=== PATIENT | male | born 1950 | race Caucasian/White ===

== ENCOUNTER 2019-05-02 22:14 | Emergency (ER) | payer MEDICARE ==
--- NOTE | 2019-05-02 22:45 | ED ---
Recheck HPI - General Chief Complaint: Recheck/Abnormal Lab/Rx Stated Complaint: high B/P Time Seen by Provider: 05/02/19 22:23 Source: patient Mode of arrival: ambulatory - History of Present Illness Initial Comments: Calin is a pleasant 68-year-old gentleman presents the ER today for evaluation of asymptomatic hypertension. Patient reports he saw his primary care physician a couple weeks ago and was told that his blood pressures elevated, since that time he's been checking his blood pressure 2 times a day, he states that it's been running somewhat high but this evening he diastolic numbers greater than 100 which prompted him to the ER for evaluation. Patient denies any complaints, he denies any headache, vision changes, chest pain, shortness breath and palpitations, lightheadedness. Patient states that he did take his evening medications after checking his blood pressure and then came to the ER. - Related Data Home Medications Medication Instructions Recorded Confirmed Aspirin [Adult Low Dose Aspirin EC] 81 mg PO DAILY 06/25/17 05/02/19 Atorvastatin [Lipitor] 80 mg PO DAILY 06/25/17 05/02/19 Metoprolol Tartrate 25 mg PO BID 06/25/17 05/02/19 amLODIPine BESYLATE/BENAZEPRIL 1 cap PO BID 05/02/19 05/02/19 [Lotrel 5-20 MG] Allergies Allergy/AdvReac Type Severity Reaction Status Date / Time No Known Allergies Allergy Verified 05/02/19 22:32 Review of Systems ROS Statement: Those systems with pertinent positive or pertinent negative responses have been documented in the HPI. ROS Other: All systems not noted in ROS Statement are negative. Past Medical History Past Medical History: Hyperlipidemia, Hypertension History of Any Multi-Drug Resistant Organisms: None Reported Past Surgical History: Coronary Bypass/CABG Past Psychological History: Anxiety Smoking Status: Former smoker Past Alcohol Use History: Daily Past Drug Use History: None Reported General Exam - General Exam Comments Initial Comments: Physical Exam GENERAL: Patient is well-developed and well-nourished. Patient is nontoxic and well- hydrated and is in no distress. HENT: Normocephalic, Atraumatic. EYES: PERRL, EOMI PULMONARY: Unlabored respirations. No audible rales rhonchi or wheezing was noted. CARDIOVASCULAR: There is a regular rate and rhythm without any murmurs gallops or rubs. ABDOMEN: Soft and nontender with normal bowel sounds. SKIN: Skin is clear with no lesions or rashes and otherwise unremarkable. : Deferred NEUROLOGIC: Patient is alert and oriented x3. Moving all extremities spontaneously MUSCULOSKELETAL: Normal extremities with adequate strength and full range of motion. No lower extremity swelling or edema. No calf tenderness. PSYCHIATRIC: Normal psychiatric evaluation. Course Vital Signs 05/02/19 05/02/19 22:16 22:55 Temperature 98.0 F 98.1 F Pulse Rate 82 80 Respiratory 20 18 Rate Blood Pressure 187/95 167/100 O2 Sat by Pulse 99 98 Oximetry Medical Decision Making - Medical Decision Making Patient was seen and evaluated, history is obtained from the patient and at bedside Patient with a symptomatically hypertension, checked his blood pressure the time that he took his medication, was greater than hour ago, upon reevaluation blood pressure is 167/100. I discussed with the patient that though this is high blood pressure cannot emergent does not require further treatment. Patient is to see his primary care physician again in 2 weeks. Advised the patient that if he's having hypertension despite being complaint with his medication he can take half a pill of his Lopressor and all questions pertaining care were answered return parameters were discussed patient was discharged home in stable condition. Disposition Clinical Impression: Hypertension Disposition: HOME SELF-CARE Condition: Stable Instructions (If sedation given, give patient instructions): Chronic Hypertension (ED) Additional Instructions: If you're blood pressure remains elevated 90 minutes after taking her blood pressure medications you can take a half a pill of metoprolol. Follow-up Dr. Ariza as planned. Return to the ER if you have any chest pain palpitations shortness of breath headache vision changes or any new or concerning symptoms. Is patient prescribed a controlled substance at d/c from ED?: No Referrals: Marcos Ariza MD [Primary Care Provider] - 1-2 days
[2019-05-02 22:56] VITALS: BP 167/100; PULSE 80; RESP 18; TEMP 98.1
== END 2019-05-02 22:56 | disposition home or self-care (01) ==
LOC: EC 22:14
DX: I10 Essential (primary) hypertension (principal); E78.5 Hyperlipidemia, unspecified; Z87.891 Personal history of nicotine dependence; Z79.82 Long term (current) use of aspirin; Z79.899 Other long term (current) drug therapy; Z95.1 Presence of aortocoronary bypass graft
CPT/HCPCS: 99283

== ENCOUNTER → 2021-10-27 | Outpatient (CLI) | payer MEDICARE ==
--- NOTE | 2021-10-27 11:07 | US ---
EXAMINATION TYPE: US venous doppler duplex LE DATE OF EXAM: 10/27/2021 9:30 AM COMPARISON: NONE CLINICAL HISTORY: R13.10, E78.00, I25.10, M62.81, Z87.891, Z13.6. Pain bilateral legs SIDE PERFORMED: Bilateral TECHNIQUE: The lower extremity deep venous system is examined utilizing real time linear array sonog jef with graded compression, doppler sonography and color-flow sonography. VESSELS IMAGED: Common Femoral Vein Deep Femoral Vein Greater Saphenous Vein * Femoral Vein Popliteal Vein Small Saphenous Vein * Proximal Calf Veins (* superficial vessels) Right Leg: Negative for DVT Left Leg: Negative for DVT Grayscale, color doppler, spectral doppler imaging performed of the deep veins of the bilateral lower extremities. There is normal flow, compressibility, vascular waveforms. IMPRESSION: No ultrasound evidence for acute DVT in either lower extremity.
--- NOTE | 2021-10-27 11:49 | US ---
EXAMINATION TYPE: US duplex aorta DATE OF EXAM: 10/27/2021 COMPARISON: NONE CLINICAL HISTORY: R13.10, E78.00, I25.10, M62.81, Z87.891, Z13.6. AAA screening EXAM MEASUREMENTS: Abdominal Aorta: Proximal: 1.8 X 1.9 X 1.9 CM Mid: 1.8 X 2.1 X 2.3 CM Distal: 1.6 X1.6 X 1.8 CM Bifurcation: Right = 0.9 x 1.0 cm Left= 1.2 x 1.1 cm No AAA visualized at time of scan. Aorta is successfully visualized through the bifurcation. IMPRESSION: No ultrasound evidence for greater than 3.0 cm AAA.
--- NOTE | 2021-10-27 14:01 | FL ---
EXAMINATION TYPE: FL barium swallow DATE OF EXAM: 10/27/2021 CLINICAL HISTORY: Throat tightness and soreness. Some choking sensation. TECHNIQUE: A double contrast esophagram is performed utilizing air and barium. A total of 40 second s of fluoroscopic time was utilized during procedure and 39 images obtained COMPARISON: None FINDINGS: The esophagus shows satisfactory motility and emptying into the stomach. No diverticulum is seen. No intraluminal mass identified. Small sliding-type hiatal hernia. No stricture noted. No sig nificant gastroesophageal reflux was seen during real time performance of this study. Overlying doyle al wires from CABG procedure are noted. IMPRESSION: Small sliding-type hiatal hernia otherwise unremarkable study.
== END | disposition home or self-care (01) ==
LOC: RADUSWWP 08:47
PROVIDERS: ATTEND Family Medicine
DX: Z13.6 Encounter for screening for cardiovascular disorders (principal); E78.00 Pure hypercholesterolemia, unspecified; I25.10 Atherosclerotic heart disease of native coronary artery without angina pectoris; M62.81 Muscle weakness (generalized); K44.9 Diaphragmatic hernia without obstruction or gangrene; I73.9 Peripheral vascular disease, unspecified; Z87.891 Personal history of nicotine dependence; Z95.1 Presence of aortocoronary bypass graft
CPT/HCPCS: 74220; 93922; 93970; 93979

== ENCOUNTER → 2022-05-25 | Outpatient (CLI) | payer MEDICARE | END | disposition home or self-care (01) | LOC: RADUSWWP 08:30 | PROVIDERS: ATTEND Family Medicine | DX: Z53.9 Procedure and treatment not carried out, unspecified reason (principal) ==

== ENCOUNTER 2023-05-18 23:50 | Emergency (ER) | payer MEDICARE ==
[2023-05-19 00:16] VITALS: RESP 18
[2023-05-19 00:41] LABS: Basophils % (A) 0 %; Eosinophils # (A) 0.1 k/uL (0-0.7); Eosinophils % (A) 2 %; HCT 39.7 % (39.0-53.0); HGB 13.2 gm/dL (13.0-17.5); Lymphocytes # (A) 1.7 k/uL (1.0-4.8); Lymphocytes % (A) 26 %; MCH 29.9 pg (25.0-35.0); MCHC 33.1 g/dL (31.0-37.0); MCV 90.2 fL (80.0-100.0); Mean Platelet Volume 8.8; Monocytes # (A) 0.5 k/uL (0-1.0); Monocytes % (A) 8 %; Neutrophils % (A) 61 %; Platelet Count 136 k/uL (150-450); RDW 13.3 % (11.5-15.5); WBC 6.6 k/uL (3.8-10.6)
[2023-05-19 00:45] LABS: ALT 43 U/L (4-49); AST 38 U/L (17-59); African American GFR (CKD) 49 (>60 ml/min/1.73 sqM); Alkaline Phosphatase 52 U/L (38-126); Anion Gap 9 mmol/L; Blood Urea Nitrogen 24 mg/dL (9-20); Calcium 9.4 mg/dL (8.4-10.2); Carbon Dioxide 24 mmol/L (22-30); Chloride 108 mmol/L (98-107); Glucose 87 mg/dL (74-99); Magnesium 2.2 mg/dL (1.6-2.3); Non-African American GFR(CKD) 43 (>60 ml/min/1.73 sqM); Potassium 4.6 mmol/L (3.5-5.1); Sodium 141 mmol/L (137-145); Total Bilirubin 0.3 mg/dL (0.2-1.3); Total Protein 6.5 g/dL (6.3-8.2)
[2023-05-19 00:49] LABS: Partial Thromboplastin Time 25.1 sec (22.0-30.0); Prothrombin Time 11.1 sec (10.0-12.5)
--- NOTE | 2023-05-19 02:13 | ED ---
Chest Pain HPI - General Chief Complaint: Chest Pain Stated Complaint: Chest Pain Time Seen by Provider: 05/18/23 23:55 Source: patient Mode of arrival: ambulatory Limitations: no limitations - History of Present Illness Initial Comments: 72-year-old male with past medical history of coronary artery disease status post coronary bypass, hypertension who presents emergency department reporting chest pain. States the pain began around 9 PM while he was getting ready for bed. He describes it as a pressure sensation over the right side of his chest. Denies any provocative factors. Denies associated shortness of breath, nausea. No fevers, chills or cough. Pain is mostly resolved at this time. Denies taking any medications for his symptoms. He has no access to nitro. States that he is currently undergoing testing through his cardiology office. He just had a treadmill stress test done. He is supposed to be going for a nuclear stress test on the . He denies any additional symptoms to include abdominal pain, numbness or tingling in his extremities. No other alleviating, precipitating or modifying factors - Related Data Home Medications Medication Instructions Recorded Confirmed Aspirin [Adult Low Dose Aspirin EC] 81 mg PO DAILY 06/25/17 05/02/19 Atorvastatin [Lipitor] 80 mg PO DAILY 06/25/17 05/02/19 Metoprolol Tartrate 25 mg PO BID 06/25/17 05/02/19 amLODIPine BESYLATE/BENAZEPRIL 1 cap PO BID 05/02/19 05/02/19 [Lotrel 5-20 MG] Allergies Allergy/AdvReac Type Severity Reaction Status Date / Time No Known Allergies Allergy Verified 05/18/23 23:55 Review of Systems ROS Statement: Those systems with pertinent positive or pertinent negative responses have been documented in the HPI. ROS Other: All systems not noted in ROS Statement are negative. Past Medical History Past Medical History: Hyperlipidemia, Hypertension History of Any Multi-Drug Resistant Organisms: None Reported Past Surgical History: Coronary Bypass/CABG Past Psychological History: Anxiety Smoking Status: Never smoker Past Alcohol Use History: Daily Past Drug Use History: None Reported General Exam Limitations: no limitations General appearance: alert, in no apparent distress Head exam: Present: atraumatic, normocephalic, normal inspection Eye exam: Present: normal appearance, PERRL, EOMI. Absent: scleral icterus, conjunctival injection, periorbital swelling ENT exam: Present: normal exam, mucous membranes moist Neck exam: Present: normal inspection. Absent: tenderness, meningismus, lymphadenopathy Respiratory exam: Present: normal lung sounds bilaterally. Absent: respiratory distress, wheezes, rales, rhonchi, stridor Cardiovascular Exam: Present: regular rate, normal rhythm, normal heart sounds. Absent: systolic murmur, diastolic murmur, rubs, gallop, clicks GI/Abdominal exam: Present: soft, normal bowel sounds. Absent: distended, tenderness, guarding, rebound, rigid Extremities exam: Present: normal inspection, full ROM, normal capillary refill. Absent: tenderness, pedal edema, joint swelling, calf tenderness Back exam: Present: normal inspection Neurological exam: Present: alert, oriented X3, CN II-XII intact Psychiatric exam: Present: normal affect, normal mood Skin exam: Present: warm, dry, intact, normal color. Absent: rash Course Vital Signs 05/18/23 05/19/23 23:53 02:50 Temperature 98 F 98.1 F Pulse Rate 64 51 L Respiratory 18 18 Rate Blood Pressure 202/99 137/76 O2 Sat by Pulse 96 97 Oximetry Chest Pain MDM - MDM Was pt. sent in by a medical professional or institution (, PA, ELECTRIC CAR OPERATOR, urgent care, hospital, or [facility]...) When possible be specific @ -No Did you speak to anyone other than the patient for history (EMS, parent, family, police, friend...)? What history was obtained from this source @ -No Did you review nursing and triage notes (agree or disagree)? Why? @ -I reviewed and agree with nursing and triage notes Were old charts reviewed (outside hosp., previous admission, EMS record, old EKG, old radiological studies, urgent care reports/EKG's, [facility] records)? Report findings @ -I reviewed patient's old EKG Differential Diagnosis (chest pain, altered mental status, abdominal pain women, abdominal pain men, vaginal bleeding, weakness, fever, dyspnea, syncope, headache, dizziness, GI bleed, back pain, seizure, CVA, palpatations, mental health, musculoskeletal)? @ -Differential Chest Pain: Stable Angina, Unstable Angina, STEMI, NSTEMI Aortic Dissection, Pneumothorax, Musculoskeletal, Esophageal Spasm GERD, Cholecystitis, Pancreatitis, Zoster, this is not meant to be an all-inclusive list. EKG interpreted by me (3pts min.). @ -Yes and demonstrates sinus bradycardia with a rate of 56. IA interval 264. QRS 124. QTC of 438. No acute ST segment elevations or depressions X-rays interpreted by me (1pt min.). @ -Yes and demonstrates no acute process CT interpreted by me (1pt min.). @ -None done U/S interpreted by me (1pt. min.). @ -None done What testing was considered but not performed or refused? (CT, X-rays, U/S, labs)? Why? @ -Serial troponins, echo, stress test, cardiology consultation -patient refused What meds were considered but not given or refused? Why? @ -None Did you discuss the management of the patient with other professionals (professionals i.e. , PA, ELECTRIC CAR OPERATOR, lab, RT, psych nurse, criminal justice social worker, cupola melter helper, teacher, contract officer, counseling case manager)? Give summary @ -No Was smoking cessation discussed for >3mins.? @ -No Was critical care preformed (if so, how long)? @ -No Were there social determinants of health that impacted care today? How? (Homelessness, low income, unemployed, alcoholism, drug addiction, transportation, low edu. Level, literacy, decrease access to med. care, senior living, rehab)? @ -No Was there de-escalation of care discussed even if they declined (Discuss DNR or withdrawal of care, Hospice)? DNR status @ -No What co-morbidities impacted this encounter? (DM, HTN, Smoking, COPD, CAD, Cancer, CVA, ARF, Chemo, Hep., AIDS, mental health diagnosis, sleep apnea, morbid obesity)? @ -Coronary artery disease Was patient admitted / discharged? Hospital course, mention meds given and route, prescriptions, significant lab abnormalities, going to OR and other pertinent info. @ -Discharged. Upon arrival 12-lead EKG was obtained. Laboratory studies are conducted. Patient is offered something for pain however he reports that majority of his pain is gone at this time. Results of laboratory studies are discussed the patient. I did recommend admission due to his significant cardiac history however patient adamantly wants to go home. He is aware of the risks of leaving including permanent disability and even . He does have capacity to make his own decisions and continues to want to leave. I did request that I perform a second troponin level for which she was agreeable to stay and additi onal 30 minutes to have this done. Second troponin continues to be negative. Patient will be discharged to follow up with his contract officer for his stress test. Return if he has any new or worsening symptoms. Patient was agreeable to plan is discharged in stable condition Undiagnosed new problem with uncertain prognosis? @ -Yes Drug Therapy requiring intensive monitoring for toxicity (Heparin, Nitro, Insulin, Cardizem)? @ -No Were any procedures done? @ -No Diagnosis/symptom? @ -Acute chest pain, history of atherosclerotic coronary artery disease Acute, or Chronic, or Acute on Chronic? @ -Acute Uncomplicated (without systemic symptoms) or Complicated (systemic symptoms)? @ -Complicated Side effects of treatment? @ -No Exacerbation, Progression, or Severe Exacerbation? @ -No Poses a threat to life or bodily function? How? (Chest pain, [place], [place], pneumonia, PE, COPD, DKA, ARF, appy, cholecystitis, CVA, Diverticulitis, Homicidal, Suicidal, threat to staff... and all critical care pts) @ -Yes, patient has chest pain with a history of coronary disease Disposition Clinical Impression: Chest pain Disposition: HOME SELF-CARE Condition: Stable Instructions (If sedation given, give patient instructions): Chest Pain (ED) Additional Instructions: I recommend you follow up with your primary care doctor for further workup. Return to the emergency room for any new or worsening symptoms Is patient prescribed a controlled substance at d/c from ED?: No Referrals: Amee Iqbal MD [Primary Care Provider] - 1-2 days Time of Disposition: 02:41
[2023-05-19 02:55] VITALS: BP 137/76; PULSE 51; TEMP 98.1
--- NOTE | 2023-05-19 06:16 | XR ---
EXAM: XR Chest, 2 Views CLINICAL HISTORY: ITS.REASON XR Reason: Chest Pain TECHNIQUE: Frontal and lateral views of the chest. COMPARISON: 2 views of the chest June 25, 2017 IMPRESSION: 1. Unchanged mild peripheral interstitial changes in the lungs. 2. Sternotomy changes. 3. Otherwise, no acute cardiopulmonary abnormality.
== END 2023-05-19 02:51 | disposition home or self-care (01) ==
LOC: EC 23:50
DX: I44.0 Atrioventricular block, first degree (principal); E78.5 Hyperlipidemia, unspecified; I10 Essential (primary) hypertension; I25.10 Atherosclerotic heart disease of native coronary artery without angina pectoris; Z95.1 Presence of aortocoronary bypass graft; Z79.82 Long term (current) use of aspirin; Z79.899 Other long term (current) drug therapy; Z86.59 Personal history of other mental and behavioral disorders
CPT/HCPCS: 36415; 71046; 80053; 83735; 84484; 85025; 85610; 85730; 93005; 99285

== ENCOUNTER 2023-05-24 07:44 | Day surgery (SDC) | payer MEDICARE ==
[2023-05-22 13:57] VITALS: BMI 25.8
[~2023-05-24 07:44] MED LIST: LACTATED RINGERS 1,000 ML IV SCH; LIDOCAINE 1% (10MG/ML) FOR IV START INTRADERMA PRN
[2023-05-24 08:26] VITALS: TEMP 96.9
[2023-05-24] MEDS ORDERED: PROPOFOL 10 MG/ML 20 ML VIAL IV ONE (08:48)
[2023-05-24] MEDS ORDERED: LIDOCAINE 1% INJ 10MG/ML (20 ML MDV) ONE (08:48)
--- NOTE | 2023-05-24 09:08 | P.PCN ---
Date of Procedure: 05/24/23 Procedure(s) Performed: BRIEF HISTORY: Patient is a 72-year-old pleasant swhite malecheduled for an elective colonoscopy as a part of screening for colon cancer. PROCEDURE PERFORMED: Colonoscopy. PREOPERATIVE DIAGNOSIS: Screening for colon cancer IV sedation per Anesthesia. PROCEDURE: After informed consent was obtained, the patient, was brought into the endoscopy unit. IV sedation was administered by Anesthesia under continuous monitoring. Digital rectal examination was normal. Initially the Olympus CF-160 flexible video colonoscope was then inserted in the rectum, gradually advanced into the cecum without any difficulty. Careful examination was performed as the scope was gradually being withdrawn. Ileocecal valve and the appendiceal orifice were visualized and appeared normal. Prep was excellent. Mucosa of the cecum, at 3 small polyps measuring between 2 mm 3 mm and 4 mm in size all of which were removed by cold biopsy. In the ascending colon there was a 3 mm polyp that was removed by cold biopsy. In the descending colon there was a 4 mm polyp removed by cold biopsy. In the sigmoid: There was a 7 mm polyp that was removed by cold snare polypectomy. In the rectum there was a 5 limited polyp that was removed by cold snare polypectomy. Retroflexion was performed in the rectum and no lesions were seen. The patient tolerated the procedure well. IMPRESSION: 2 mm 3 mm and 4 mm cecal polyp status post cold biopsy 3 mm ascending colon polyp status post cold biopsy 4 mm descending colon polyp status post cold biopsy 7 mm; sigmoid polyp status post cold snare polypectomy 5 mm rectal polyp status post cold snare polypectomy RECOMMENDATIONS: Findings of this examination were discussed with the patient as well his family he was advised to follow with the biopsy results. If the biopsy was adenoma he can have a repeat colonoscopy in 3 years.
[2023-05-24 09:24] VITALS: PULSE 78
[2023-05-24 09:52] VITALS: BP 145/78; RESP 18
== END 2023-05-24 09:44 | disposition home or self-care (01) ==
LOC: ORWHC2ENDO 07:44
PROVIDERS: ATTEND Internal Medicine Gastroenterology
DX: Z12.11 Encounter for screening for malignant neoplasm of colon (principal); K63.5 Polyp of colon; E78.5 Hyperlipidemia, unspecified; I25.10 Atherosclerotic heart disease of native coronary artery without angina pectoris; F41.9 Anxiety disorder, unspecified; Z95.1 Presence of aortocoronary bypass graft; Z79.82 Long term (current) use of aspirin; Z79.899 Other long term (current) drug therapy
CPT/HCPCS: 88305; 45380; 45385; J2001; J2704

== ENCOUNTER 2024-01-27 04:36 | Emergency (ER) | payer MEDICARE ==
[2024-01-27 04:47] VITALS: RESP 16
--- NOTE | 2024-01-27 05:23 | ED ---
Lower Extremity Injury HPI - General Chief Complaint: Extremity Injury, Lower Stated Complaint: r ankle pain Time Seen by Provider: 01/27/24 05:05 Source: patient Mode of arrival: ambulatory Limitations: no limitations - History of Present Illness Initial Comments: This patient is a 73-year-old man who presents to have evaluation of right ankle pain. The patient states that he had a ground-level fall about a week ago. He at that time was not having any pain related to his ankle. Over about the past 2 days he has noted that his ankle has been getting more more tender and there has been associated swelling. The patient denies change in sensation or weakness of the foot. MD Complaint: ankle injury Onset/Timin -: days(s) Injury: Ankle: Right Place: home Severity: severe Improves With: nothing Worsens With: weight bearing, movement Context: fall Associated Symptoms: swelling, unable to bear weight - Related Data Home Medications Medication Instructions Recorded Confirmed Aspirin [Adult Low Dose Aspirin EC] 81 mg PO DAILY 06/25/17 05/22/23 Atorvastatin [Lipitor] 80 mg PO DAILY 06/25/17 05/22/23 Metoprolol Tartrate 25 mg PO DAILY 06/25/17 05/22/23 amLODIPine BESYLATE/BENAZEPRIL 10 cap PO DAILY 05/02/19 05/22/23 [Lotrel 5-20 MG] Ezetimibe [Zetia] 10 mg PO DAILY 05/22/23 05/22/23 cloNIDine HCL 0.3 mg PO TID 05/22/23 05/22/23 Previous Rx's Medication Instructions Recorded Colchicine 0.6 mg PO Q1H PRN #12 capsule 01/27/24 HYDROcodone/APAP 5-325MG [Barker 1 tab PO Q4HR PRN 3 Days #18 tab 01/27/24 5-325] Indomethacin [Indocin] 50 mg PO TID #15 capsule 01/27/24 predniSONE 60 mg PO DAILY #30 tab 01/27/24 Allergies Allergy/AdvReac Type Severity Reaction Status Date / Time No Known Allergies Allergy Verified 01/27/24 04:44 Review of Systems ROS Statement: Those systems with pertinent positive or pertinent negative responses have been documented in the HPI. ROS Other: All systems not noted in ROS Statement are negative. Constitutional: Denies: fever, chills Respiratory: Denies: cough, dyspnea Cardiovascular: Denies: chest pain, palpitations, edema Gastrointestinal: Denies: abdominal pain Skin: Denies: rash Neurological: Denies: headache, weakness Past Medical History Past Medical History: Hyperlipidemia, Hypertension History of Any Multi-Drug Resistant Organisms: None Reported Past Surgical History: Coronary Bypass/CABG Past Psychological History: Anxiety Smoking Status: Never smoker Past Alcohol Use History: None Reported Past Drug Use History: None Reported General Exam Limitations: no limitations General appearance: alert, in no apparent distress Respiratory exam: Present: normal lung sounds bilaterally. Absent: respiratory distress, wheezes, rales, rhonchi, stridor Cardiovascular Exam: Present: regular rate, normal rhythm, normal heart sounds. Absent: systolic murmur, diastolic murmur, rubs, gallop Right Ankle exam: Present: tenderness, swelling, erythema. Absent: full ROM, abrasion, laceration, ecchymosis, deformity, crepitus, dislocation Foot/Toe exam: Present: normal inspection. Absent: tenderness, swelling, ecchymosis, deformity Neurovascular tendon exam: Present: no vascular compromise. Absent: pulse deficit, abnormal cap refill, motor deficit, sensory deficit, tendon deficit Neurological exam: Absent: motor sensory deficit Skin exam: Present: warm, dry, intact, erythema. Absent: rash Course Vital Signs 01/27/24 01/27/24 04:44 07:43 Temperature 99.1 F 97.7 F Pulse Rate 77 64 Respiratory 16 16 Rate Blood Pressure 177/85 164/82 O2 Sat by Pulse 99 96 Oximetry Medical Decision Making - Medical Decision Making The patient had an ankle x-ray that I interpreted as negative for acute fracture or dislocation. Was pt. sent in by a medical professional or institution (, PA, [employer], urgent care, hospital, or alf...) When possible be specific @ -[No] Did you speak to anyone other than the patient for history (EMS, parent, family, police, friend...)? What history was obtained from this source @ -[No] Did you review nursing and triage notes (agree or disagree)? Why? @ -[I reviewed and agree with nursing and triage notes] Were old charts reviewed (outside hosp., previous admission, EMS record, old EKG, old radiological studies, urgent care reports/EKG's, alf records)? Report findings @ -[No old charts were reviewed] Differential Diagnosis (chest pain, altered mental status, abdominal pain women, abdominal pain men, vaginal bleeding, weakness, fever, dyspnea, syncope, headache, dizziness, GI bleed, back pain, seizure, CVA, palpatations, mental health, musculoskeletal)? @ -[Differential Musculoskeletal Muscular strain, contusion, ligament sprain, fracture, arthritis, septic arthritis, bursitis, cellulitis, muscle spasm, nerve compression, DVT, arterial occlusion, herpes zoster, electrolyte abnormality, tumor.... This is not meant to be in all inclusive list EKG interpreted by me (3pts min.). @ -[As above] X-rays interpreted by me (1pt min.). @ -[I interpreted as above CT interpreted by me (1pt min.). @ -[None done] U/S interpreted by me (1pt. min.). @ -[None done] What testing was considered but not performed or refused? (CT, X-rays, U/S, labs)? Why? @ -[None] What meds were considered but not given or refused? Why? @ -[None] Did you discuss the management of the patient with other professionals (professionals i.e. , PA, [employer], lab, RT, psych nurse, manager social responsibility, prop sawyer, t eacher, chief wellness officer, case finishing machine adjuster)? Give summary @ -[No] Was smoking cessation discussed for >3mins.? @ -[No] Was critical care preformed (if so, how long)? @ -[No] Were there social determinants of health that impacted care today? How? (Homelessness, low income, unemployed, alcoholism, drug addiction, transportation, low edu. Level, literacy, decrease access to med. care, assisted, rehab)? @ -[No] Was there de-escalation of care discussed even if they declined (Discuss DNR or withdrawal of care, Hospice)? DNR status @ -[No] What co-morbidities impacted this encounter? (DM, HTN, Smoking, COPD, CAD, Cancer, CVA, ARF, Chemo, Hep., AIDS, mental health diagnosis, sleep apnea, morbid obesity)? @ -[None] Was patient admitted / discharged? Hospital course, mention meds given and route, prescriptions, significant lab abnormalities, going to OR and other pertinent info. @ -[Patient is 73-year-old man with arthralgia after low mechanism injury. Suspect that there is element of gout. Discussed appropriate further care and follow-up as well as return parameters Undiagnosed new problem with uncertain prognosis? @ -[No] Drug Therapy requiring intensive monitoring for toxicity (Heparin, Nitro, Insulin, Cardizem)? @ -[No] Were any procedures done? @ -[No] Diagnosis/symptom? @ -[Acute arthralgia, suspected due to gout Acute, or Chronic, or Acute on Chronic? @ -[Acute Uncomplicated (without systemic symptoms) or Complicated (systemic symptoms)? @ -[Uncomplicated Side effects of treatment? @ -[No] Exacerbation, Progression, or Severe Exacerbation? @ -[No] Poses a threat to life or bodily function? How? (Chest pain, [place], [place], pneumonia, PE, COPD, DKA, ARF, appy, cholecystitis, CVA, Diverticulitis, Homicidal, Suicidal, threat to staff... and all critical care pts) @ -[No] - Lab Data Result diagrams: 01/27/24 05:54 01/27/24 05:54 Lab Results 01/27/24 01/27/24 Range/Units 05:54 05:54 WBC 8.7 (3.8-10.6) k/uL RBC 4.80 (4.30-5.90) m/uL Hgb 13.9 (13.0-17.5) gm/dL Hct 42.5 (39.0-53.0) % MCV 88.5 (80.0-100.0) fL MCH 28.9 (25.0-35.0) pg MCHC 32.6 (31.0-37.0) g/dL RDW 13.6 (11.5-15.5) % Plt Count 164 (150-450) k/uL MPV 8.3 Neutrophils % 78 % Lymphocytes % 11 % Monocytes % 8 % Eosinophils % 1 % Basophils % 0 % Neutrophils # 6.8 (1.3-7.7) k/uL Lymphocytes # 1.0 (1.0-4.8) k/uL Monocytes # 0.7 (0-1.0) k/uL Eosinophils # 0.1 (0-0.7) k/uL Basophils # 0.0 (0-0.2) k/uL Sodium 138 (137-145) mmol/L Potassium 4.7 (3.5-5.1) mmol/L Chloride 108 H (98-107) mmol/L Carbon Dioxide 25 (22-30) mmol/L Anion Gap 5 mmol/L BUN 25 H (9-20) mg/dL Creatinine 1.40 H (0.66-1.25) mg/dL Est GFR (CKD-EPI)AfAm 57 (>60 ml/min/1.73 sqM) Est GFR (CKD-EPI)NonAf 49 (>60 ml/min/1.73 sqM) Glucose 94 (74-99) mg/dL Uric Acid 7.6 (3.5-8.5) mg/dL Calcium 9.7 (8.4-10.2) mg/dL Total Bilirubin 0.5 (0.2-1.3) mg/dL AST 28 (17-59) U/L ALT 22 (4-49) U/L Alkaline Phosphatase 61 (38-126) U/L C-Reactive Protein 2.7 H (<1.0) mg/dL Total Protein 6.9 (6.3-8.2) g/dL Albumin 4.5 (3.5-5.0) g/dL Disposition Clinical Impression: Arthralgia Disposition: HOME SELF-CARE Condition: Good Instructions (If sedation given, give patient instructions): Low Purine Diet (ED), Gout (ED) Prescriptions: Colchicine 0.6 mg PO Q1H PRN #12 capsule PRN Reason: Pain Indomethacin [Indocin] 50 mg PO TID #15 capsule HYDROcodone/APAP 5-325MG [Barker 5-325] 1 tab PO Q4HR PRN 3 Days #18 tab PRN Reason: Pain predniSONE 60 mg PO DAILY #30 tab Is patient prescribed a controlled substance at d/c from ED?: Yes When asked, does pt state using other controlled substances?: No If prescribed controlled substance>3 days was MAPS reviewed?: Prescribed <3 Days If opioid is for acute pain is fill amount 7 days or less?: Yes If Rx opioid, was Start Talking consent form obtained?: Yes Referrals: Amee Iqbal MD [Primary Care Provider] - 1-2 days Deric Mukherjee DO [Doctor of Osteopathic Medicine] - 1-2 days
[2024-01-27] MEDS: KETOROLAC 15 MG/ML 1 ML VIAL IVP STA (05:48)
[2024-01-27] MEDS: MORPHINE SULFATE 4 MG/ML SYRINGE IV STA (05:48)
[2024-01-27] MEDS: predniSONE 20 MG TAB PO STA (05:49)
[2024-01-27 06:06] LABS: Basophils % (A) 0 %; Eosinophils # (A) 0.1 k/uL (0-0.7); Eosinophils % (A) 1 %; HCT 42.5 % (39.0-53.0); HGB 13.9 gm/dL (13.0-17.5); Lymphocytes % (A) 11 %; MCH 28.9 pg (25.0-35.0); MCHC 32.6 g/dL (31.0-37.0); MCV 88.5 fL (80.0-100.0); Mean Platelet Volume 8.3; Monocytes # (A) 0.7 k/uL (0-1.0); Monocytes % (A) 8 %; Neutrophils # (A) 6.8 k/uL (1.3-7.7); Neutrophils % (A) 78 %; Platelet Count 164 k/uL (150-450); RDW 13.6 % (11.5-15.5); WBC 8.7 k/uL (3.8-10.6)
[2024-01-27 06:22] LABS: ALT 22 U/L (4-49); AST 28 U/L (17-59); African American GFR (CKD) 57 (>60 ml/min/1.73 sqM); Albumin 4.5 g/dL (3.5-5.0); Alkaline Phosphatase 61 U/L (38-126); Anion Gap 5 mmol/L; Blood Urea Nitrogen 25 mg/dL (9-20); C Reactive Protein 2.7 mg/dL (<1.0); Calcium 9.7 mg/dL (8.4-10.2); Carbon Dioxide 25 mmol/L (22-30); Chloride 108 mmol/L (98-107); Glucose 94 mg/dL (74-99); Non-African American GFR(CKD) 49 (>60 ml/min/1.73 sqM); Potassium 4.7 mmol/L (3.5-5.1); Sodium 138 mmol/L (137-145); Total Bilirubin 0.5 mg/dL (0.2-1.3); Total Protein 6.9 g/dL (6.3-8.2); Uric Acid 7.6 mg/dL (3.5-8.5)
--- NOTE | 2024-01-27 06:51 | XR ---
Right ankle HISTORY: Pain following fall. COMPARISON: None TECHNIQUE: 3 views of the right ankle were obtained. FINDINGS: There is no fracture, dislocation, intraosseous or intra-articular abnormality. The ankle mortise is intact. There is surgical clips in the medial soft tissues. IMPRESSION: No evidence of acute trauma.
[2024-01-27 07:44] VITALS: BP 164/82; PULSE 64; TEMP 97.7
== END 2024-01-27 07:47 | disposition home or self-care (01) ==
LOC: EC 04:36
DX: M25.571 Pain in right ankle and joints of right foot (principal)
CPT/HCPCS: 36415; 80053; 84550; 85025; 86140; 96374; 96375; 99284